=== PATIENT | female | born 1935 | race Two or more races ===

== ENCOUNTER 2018-08-13 10:30 | Inpatient (IN) | payer OTHER ==
[~2018-08-13] VITALS: Ht 165.1 cm; Wt 59.0 kg
[2018-08-13] MEDS ORDERED: GABAPENTIN400 MG PO (11:32)
[2018-08-13] MEDS ORDERED: PROPANOL PO (11:32)
[2018-08-13] MEDS ORDERED: ATORVASTATIN CA10 MG PO (11:33)
== END 2018-08-18 15:11 | disposition home or self-care (01) | DRG 470 ==
LOC: O/R 08-16 05:32 → SURH 08-16 05:32 → SURG 08-16 19:11 → SURH 08-16 20:01
PROVIDERS: ADMIT Orthopaedic Surgery
PROC: 0SRD0JZ Replacement of Left Knee Joint with Synthetic Substitute, Open Approach (ICD-10-PCS; principal; 2018-08-16 09:00)
DX: M17.12 Unilateral primary osteoarthritis, left knee (principal); G62.89 Other specified polyneuropathies; E78.49 Other hyperlipidemia; I10 Essential (primary) hypertension